=== PATIENT | female | born 1960 | race Caucasian/White ===

== ENCOUNTER 2017-12-17 22:07 | Emergency (ER) | payer SELFPAY ==
[2017-12-17] MEDS ORDERED: NORMAL SALINE 1000 ML 1,000 ML IV ONE (22:34)
--- NOTE | 2017-12-17 22:42 | ER Document Report ---
ED General - General Mode of Arrival: Medic Information source: Patient <GEE INFANTE - Last Filed: 12/17/17 22:56> <AR PORTER - Last Filed: 12/18/17 05:54> <VINCENT BARRIOS - Last Filed: 12/22/17 07:00> - General Stated Complaint: POSSIBLE OVERDOSE Time Seen by Provider: 12/17/17 22:32 Notes: Patient is a 57 year old female presenting to the emergency department via EMS after becoming apenic at home. Patient states after drinking a case of beer, she decided to let her son inject her with heroin out of curiosity further stating she has never tried heroin before. EMS states they found the patient not breathing and proceeded to bag her and give 3 mg of Narcan (2 IM 1 IV) and 600 saline. EMS also states the son reported he attempted CPR before their arrival. At bedside patient denies any chest pain, suicidal ideation, or homicidal ideation. (NARESHPEYTONSTEPH) Past Medical History - General Information source: Patient, Emergency Med Personnel - Social History Smoking Status: Current Every Day Smoker Frequency of alcohol use: Heavy Drug Abuse: Heroin - states 12/17/2017 is 1st time use. Family History: Reviewed & Not Pertinent <GEE INFANTE - Last Filed: 12/17/17 22:56> Review of Systems - Review of Systems Constitutional: No symptoms reported EENT: No symptoms reported Cardiovascular: No symptoms reported Respiratory: See HPI Gastrointestinal: No symptoms reported Genitourinary: No symptoms reported Female Genitourinary: No symptoms reported Musculoskeletal: No symptoms reported Skin: No symptoms reported Hematologic/Lymphatic: No symptoms reported Neurological/Psychological: No symptoms reported -: Yes All other systems reviewed and negative <GEE INFANTE - Last Filed: 12/17/17 22:56> Physical Exam <NARESHPEYTONSTEPH - Last Filed: 12/17/17 22:56> <AR PORTER - Last Filed: 12/18/17 05:54> <VINCENT BARRIOS - Last Filed: 12/22/17 07:00> - Vital signs Vitals: Pulse Ox 97 12/17/17 22:07 - Notes Notes: GENERAL: Alert, interacts well. No acute distress. HEAD: Normocephalic, atraumatic. EYES: Pupils equal, round, and reactive to light. Extraocular movements intact. ENT: Oral mucosa moist, tongue midline. NECK: Full range of motion. Supple. Trachea midline. LUNGS: No bruising or contusions on the chest. Clear to auscultation bilaterally , no wheezes, rales, or rhonchi. No respiratory distress. HEART: Regular rate and rhythm. No murmurs, gallops, or rubs. ABDOMEN: Soft, non-tender. Non-distended. Bowel sounds present in all 4 quadrants. EXTREMITIES: Moves all 4 extremities spontaneously. No edema, radial and dorsalis pedis pulses 2/4 bilaterally. No cyanosis. NEUROLOGICAL: Alert and oriented x3. Normal speech. PSYCH: Normal affect, normal mood. SKIN: Warm, dry, normal turgor. No rashes or lesions noted. (GEE INFANTE) Course - Laboratory Result Diagrams: 12/17/17 22:50 12/17/17 22:50 <GEE INFANTE - Last Filed: 12/17/17 22:56> - Laboratory Result Diagrams: 12/17/17 22:50 12/17/17 22:50 <AR PORTER - Last Filed: 12/18/17 05:54> - Laboratory Result Diagrams: 12/17/17 22:50 12/17/17 22:50 <VINCENT BARRIOS - Last Filed: 12/22/17 07:00> - Re-evaluation Re-evalutation: 12/17/17 22:42 Consulted poison control who recommended 6 hour observation. (GEE INFANTE) 12/18/17 02:58 I have evaluated patient. She is currently doing well. There is concern this patient's blood pressures consistently been systolically in the 80s. Patient is sleeping. When I wake her up her oxygen saturation is 97%. She is wide awake without signs of drowsiness. Recheck her blood pressure when she is awake and is 99/69. We will watch the patient through morning time. This will give her a total of approximately 7 hours observation. Patient is on complaint is that the IV is hurting her arm. I did remove the IV as I do not expect the patient will need any further Narcan at this time. 12/18/17 02:59 (AR PORTER) 12/17/17 23:58 Patient's labs within normal limits are nonsignificant with EKG showing no concerning findings with chest x-ray within normal limits as well. Patient asymptomatic at this time. Poison control was consulted and they recommended a 6 hour observation to ensure no rebound. Patient resting comfortably alert and awake and will be observed for 6 hours and then discharged if no rebound. (VINCENT BARRIOS) - Vital Signs Vital signs: Temp Pulse Resp BP Pulse Ox 98 F 19 103/86 H 97 12/18/17 06:30 12/18/17 06:00 12/18/17 06:00 12/18/17 05:59 - Laboratory Laboratory results interpreted by me: 12/17/17 22:50 Chloride 108 H Calcium 8.3 L Total Bilirubin < 0.1 L Total Protein 6.1 L Discharge <GEE INFANTE - Last Filed: 12/17/17 22:56> <AR PORTER - Last Filed: 12/18/17 05:54> <VINCENT BARRIOS - Last Filed: 12/22/17 07:00> - Discharge Clinical Impression: Opiate overdose Qualifiers: Encounter type: initial encounter Injury intent: accidental or unintentional Qualified Code(s): T40.601A - Poisoning by unspecified narcotics, accidental ( unintentional), initial encounter Condition: Good Disposition: HOME, SELF-CARE Additional Instructions: PLease never use heroin or any illicit drugs again. They can cause . Please return to the ER if you have difficulty breathing, difficulty ambulating , or feel unwell. Please return to the ER imemdiately if you every have to use the [facility] Prescriptions: Naloxone HCl [Narcan] 4 mg NS SUBHASH #1 spray Scribe Attestation: 12/22/17 07:00 I personally performed the services described in the documentation, reviewed and edited the documentation which was dictated to the scribe in my presence, and it accurately records my words and actions. (VINCENT BARRIOS) Scribe Documentation - Scribe Written by Raghu:: Raghu Higuera, 12/17/2017 22:58 acting as scribe for :: Sal <GEE INFANTE - Last Filed: 12/17/17 22:56>
[2017-12-17 22:59] LABS: ABSOLUTE BASOPHILS # (AUTO) 0.1 10^3/uL (0.0-0.2); ABSOLUTE EOSINOPHILS # (AUTO) 0.2 10^3/uL (0.0-0.6); ABSOLUTE LYMPHOCYTES (AUTO) 2.3 10^3/uL (0.5-4.7); ABSOLUTE MONOCYTES (AUTO) 0.5 10^3/uL (0.1-1.4); ABSOLUTE NEUT (AUTO) 5.6 10^3/uL (1.7-8.2); BASOPHILS % (AUTO) 0.8 % (0-2); HEMATOCRIT 36.3 % (36.0-47.0); HEMOGLOBIN 12.4 g/dL (12.0-15.5); LYMPHOCYTES % (AUTO) 26.6 % (13-45); MEAN CORPUSCULAR HEMOGLOBIN 31.9 pg (27.0-33.4); MEAN CORPUSCULAR VOLUME 94 fl (80-97); MONOCYTES % (AUTO) 5.6 % (3-13); PLATELET COUNT 248 10^3/uL (150-450); RED BLOOD COUNT 3.87 10^6/uL (3.72-5.28); RED CELL DISTRIBUTION WIDTH 12.9 % (11.5-14.0); TOTAL CELLS COUNTED % (AUTO) 100 %; WHITE BLOOD COUNT 8.7 10^3/uL (4.0-10.5)
[2017-12-17 23:11] LABS: ALANINE AMINOTRANSFERASE 23 U/L (9-52); ALBUMIN 3.9 g/dL (3.5-5.0); ALKALINE PHOSPHATASE 55 U/L (38-126); ANION GAP 11 (5-19); ASPARTATE AMINO TRANSFERASE 18 U/L (14-36); BLOOD UREA NITROGEN 10 mg/dL (7-20); CALCIUM 8.3 mg/dL (8.4-10.2); CARBON DIOXIDE 22 mmol/L (22-30); CHLORIDE 108 mmol/L (98-107); GLUCOSE 89 mg/dL (75-110); POTASSIUM 3.9 mmol/L (3.6-5.0); SODIUM 141.2 mmol/L (137-145); TOTAL PROTEIN 6.1 g/dL (6.3-8.2)
[2017-12-17 23:13] LABS: BILIRUBIN,TOTAL < 0.1 mg/dL (0.2-1.3)
--- NOTE | 2017-12-18 02:16 | RADIOLOGY REPORT (SQ) ---
EXAM DESCRIPTION: CHEST SINGLE VIEW CLINICAL HISTORY: 57 years Female, med clearance COMPARISON: None. NUMBER OF VIEWS/TECHNIQUE: 1/AP LIMITATIONS: None. FINDINGS: Normal lung volume, clear parenchyma, normal cardiac silhouette, and intact bony thorax. IMPRESSION: No acute cardiopulmonary findings.
[2017-12-18 06:51] VITALS: BP 103/86
--- NOTE | 2017-12-18 07:47 | EKG REPORT ---
SEVERITY:- NORMAL ECG - SINUS RHYTHM : Confirmed by: Yoni Barnhart MD 18-Dec-2017 07:46:12
== END 2017-12-18 06:30 | disposition home or self-care (01) ==
LOC: ER 22:07
DX: T40.1X1A Poisoning by heroin, accidental (unintentional), initial encounter (principal); F10.10 Alcohol abuse, uncomplicated; F17.200 Nicotine dependence, unspecified, uncomplicated
CPT/HCPCS: 93005; 99285; 96360; 36415; 85025; 80053; 71045; 93010; J7030